=== PATIENT | female | born 1995 | race Caucasian/White ===

== ENCOUNTER → 2016-07-06 | Outpatient (CLI) | payer BC ==
[2016-04-09 23:30] VITALS: BP 126/61
--- NOTE | 2016-07-06 14:27 | RAD ---
Indication:Right upper quadrant abdominal pain Grayscale images of the abdomen were obtained. Comparison note is made of a prior examination 11/20/2014 reported as unremarkable and a right upper quadrant abdominal ultrasound examination 02/14/2015 also reported as unremarkable Liver:Normal. Gallbladder:Normal. The common bile duct diameter of approximately 3 mm is also normal. Spleen:Normal Pancreas:As visualized normal. Kidneys:Normal. Abdominal aorta and IVC:Normal Ancillary findings:None Impression:Normal abdominal ultrasound exam
== END | disposition home or self-care (01) ==
LOC: US 08:42
PROVIDERS: ATTEND Pediatrics Pediatric Cardiology
DX: R10.11 Right upper quadrant pain (principal)
CPT/HCPCS: 76700

== ENCOUNTER 2017-08-11 14:35 | Emergency (ER) | payer OTHER, BC ==
[2017-08-11] MEDS: ONDANSETRON ODT 4 MG TAB.RAPDIS. PO ×2 (16:05)
== END 2017-08-11 16:05 | disposition home or self-care (01) ==
LOC: ER 14:35
DX: S06.0X0D Concussion without loss of consciousness, subsequent encounter (principal); Z91.041 Radiographic dye allergy status; W00.0XXD Fall on same level due to ice and snow, subsequent encounter
CPT/HCPCS: 70450; 99284-25; Q0162

== ENCOUNTER 2019-07-30 17:08 | Inpatient (IN) | payer OTHER ==
[~2019-07-30] VITALS: Ht 168.9 cm; Wt 65.8 kg
[~2019-07-30 17:08] MED LIST: ONDA4TAB10 SL
[2019-07-30 19:09] LABS: BASO % 1 % (0-3); EOS # 0.2 x10^3/uL (0.0-0.7); EOS % 3 % (0-3); HEMATOCRIT 38.7 % (36.0-47.0); HEMOGLOBIN 12.8 g/dL (12.0-15.5); LYMPH # 1.3 x10^3/uL (1.0-4.8); LYMPH % 28 % (24-48); MEAN CORPUSCULAR HEMOGLOBIN 28 pg (25-35); MEAN CORPUSCULAR HGB CONC 33 g/dL (31-37); MEAN CORPUSCULAR VOLUME 84 fL (79-100); MONO # 0.5 x10^3/uL (0.0-1.1); MONO % 10 % (0-9); NEUT # 2.8 x10^3/uL (1.8-7.7); NEUT % 58 % (31-73); PLATELET COUNT 89 x10^3/uL (140-400); RED BLOOD COUNT 4.61 x10^6/uL (3.50-5.40); RED CELL DISTRIBUTION WIDTH 13.6 % (11.5-14.5); WHITE BLOOD COUNT 4.8 x10^3/uL (4.0-11.0)
[2019-07-30 19:19] LABS: CALCIUM 9.6 mg/dL (8.5-10.1); CREATININE 0.8 mg/dL (0.6-1.0); GFR 88.9; POTASSIUM 3.5 mmol/L (3.5-5.1)
[2019-07-30 19:25] LABS: ALBUMIN 3.8 g/dL (3.4-5.0); ALBUMIN/GLOBULIN RATIO 1.1 (1.0-1.7); C-REACTIVE PROTEIN 4.2 mg/L (0-3.3); PREG TEST PT QUAL NEGATIVE (NEG); TOTAL BILIRUBIN 0.2 mg/dL (0.2-1.0); TOTAL PROTEIN 7.3 g/dL (6.4-8.2)
[2019-07-30 19:36] LABS: ANISOCYTOSIS SLIGHT; PLT ESTIMATE DECREASED (ADEQUATE)
[2019-07-30 19:37] LABS: TEAR DROP CELLS OCC
[2019-07-30] MEDS ORDERED: IOHEXOL 300 MG/ML 100ML VIAL. IV ONE (21:00)
[2019-07-30] MEDS ORDERED: CONTRAST GIVEN. MC PRN ×2 (21:15→22:00)
--- NOTE | 2019-07-30 21:15 | RAD ---
STUDY: CT angiography of the head and neck INDICATION: Loss of vision. COMPARISON: Correlation is made to the CT of the head from 08/11/2017 TECHNIQUE: Axial CT imaging of the head and neck utilizing angiography protocol and performed after the intravenous administration of 75 cc Omnipaque 300 contrast. Multiplanar reformats and 3D MIP acquisitions were obtained. Encountered areas of stenosis are measured per NASCET criteria. One or more of the following individualized dose reduction techniques were utilized for this examination: 1. Automated exposure control 2. Adjustment of the mA and/or kV according to patient size 3. Use of iterative reconstruction technique. FINDINGS: CTA NECK: Arch/Proximal Great Vessels: The aortic arch and visualized ascending and descending aorta are normal. 3 vessel arch with widely patent origins. The visualized subclavian and axillary arteries are normal. Widely patent common carotid arteries. Carotid Bifurcation/Cervical ICA: Widely patent extracranial internal carotid arteries. Unremarkable external carotid artery branches. Vertebral Arteries: Patent vertebral artery origins. The vertebral arteries are codominant and without flow-limiting stenosis or dissection throughout their extracranial course. CTA HEAD: Posterior Circulation: The right intracranial vertebral artery becomes small in caliber after the origin of the posterior inferior cerebellar artery but remains patent and this configuration is favored developmental. The intracranial left vertebral artery is widely patent. The basilar artery is patent. Hypoplastic P1 posterior cerebral artery segments, more noticeable on the left, in the setting of bilateral widely patent posterior communicating arteries. No branch vessel occlusion or flow-limiting stenosis seen to involve the bilateral posterior cerebral arteries distal to P1. Anterior Circulation: Normal intracranial carotid arteries. No flow-limiting stenosis, branch vessel occlusion or aneurysm seen to involve the anterior circulation. Variant anterior cerebral artery anatomy with a patent anterior communicating artery but predominant supply of the right and left anterior cerebral artery branches distal to A1 by a dominant left A2 and beyond anterior cerebral artery vessel. Ophthalmic arteries remain opacified bilaterally. Veins: Patent dural sinuses and major intracerebral veins. MISCELLANEOUS: Unremarkable orbits no abnormality involving the visualized lungs. Unremarkable cervical spine. IMPRESSION: CT Angio Neck: 1. The visualized aorta is normal. Widely patent carotid and vertebral arteries throughout their extracranial course. CT Angio Head: 1. No flow-limiting stenosis or branch vessel occlusion involving the anterior or posterior cerebral circulations. Patent dural sinuses and major intracerebral veins. Collectively, no abnormality is seen by CT angiography to account for the patient's vision loss. Electronically signed by: AIDEE PYLE MD (07/30/2019 9:12 PM) [id number]
[2019-07-30] MEDS ORDERED: IV NORMAL SALINE 1000ML BAG 1,000 ML IV ONE (21:30)
[2019-07-30] MEDS ORDERED: IOHEXOL 350 MG/ML 100 ML VIAL. IV ONE (21:45)
--- NOTE | 2019-07-30 22:08 | RAD ---
Exam: CT of chest with contrast INDICATION: Loss of vision TECHNIQUE: Sequential axial images through the chest obtained following the administration 90 mL of Omni 350 IV contrast. Sagittal and coronal reformatted images were reconstructed from the axial data and reviewed. 3-D reformatted images were reconstructed from the axial data and reviewed. Comparisons: None FINDINGS: Visualized portions of the thyroid are unremarkable. No enlarged mediastinal lymph nodes. Heart size is normal. No pericardial effusion. Thoracic aorta has a normal course and caliber. Pulmonary artery is not enlarged. Airways are patent. No consolidation or pneumothorax. No suspicious lung nodules are identified. No pleural effusion or thickening. Visualized upper abdomen is unremarkable. No suspicious osseous lesions or acute fracture. Sternotomy wires are noted. IMPRESSION: Thoracic aorta has a normal course and caliber without evidence of dissection, aneurysm or intramural hematoma. Exposure: One or more of the following in the visualized dose reduction techniques were utilized for this examination: 1. Automated exposure control 2. Adjustment of the MA and/or KV according to patient size 3. Use of iterative of reconstructive technique Electronically signed by: Han Waters MD (07/30/2019 10:05 PM) [id number]
[2019-07-31 02:00] VITALS: BP 114/73
[2019-07-31] MEDS: MORPHINE SULFATE 2 MG/ML VIAL. IV PRN ×2 (03:07→08:00)
[2019-07-31] MEDS ORDERED: ESTR1.25 PO (04:05)
--- NOTE | 2019-07-31 04:50 | EKG ---
[facility] [address] [place] [address] Test Date: 2019-07-30 Test Time: 18:29:05 Pat Name: MARLON CARDOSO Department: Room: Gender: F Boilermaker: : 1995 Requested By: PAUL ODEN Order Number: [id number] Reading MD: Measurements Intervals Fletcher Rate: 69 P: 12 LA: 170 QRS: -41 QRSD: 98 T: 13 QT: 406 QTc: 441 Interpretive Statements SINUS RHYTHM ABNORMAL LEFT AXIS DEVIATION R-S TRANSITION ZONE IN V LEADS DISPLACED TO THE RIGHT LEFT ANTERIOR FASCICULAR BLOCK INCOMPLETE RIGHT BUNDLE BRANCH BLOCK RVH WITH REPOLARIZATION ABNORMALITY ABNORMAL ECG No previous ECG available for comparison
--- NOTE | 2019-07-31 06:01 | PHYS DOC ---
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 Symptom onset was 2 hours prior to ED arrival. Patient denies posterior neck pain, tinnitus, dizziness. No palpitations, shortness of breath. No history of migraines. Denies flashes, floaters or loss or eye pain. Wears corrective lenses. No other acute symptoms or complaints. History of mitral valve repair and strabismus. [] Review of Systems Review of Systems Constitutional: Denies fever or chills [] Eyes: Denies change in visual acuity, redness, or eye pain [] HENT: Denies nasal congestion or sore throat [] Respiratory: Denies cough or shortness of breath [] Cardiovascular: No additional information not addressed in HPI [] GI: Denies abdominal pain, nausea, vomiting, bloody stools or diarrhea [] : Denies dysuria or hematuria [] Musculoskeletal: Denies back pain or joint pain [] Integument: Denies rash or skin lesions [] Neurologic: Denies headache, focal weakness or sensory changes [] Endocrine: Denies polyuria or polydipsia [] All other systems were reviewed and found to be within normal limits, except as documented in this note. Current Medications Current Medications Current Medications Medications (Trade) Dose Ordered Sig/Dank Start Time Stop Time Status Last Admin Dose Admin Info (CONTRAST GIVEN -- Rx MONITORING) 1 each PRN DAILY PRN 07/30/19 22:00 08/01/19 21:59 Iohexol (Omnipaque 300 Mg/ml) 75 ml 1X ONCE 07/30/19 21:00 07/30/19 21:02 DC 07/30/19 21:26 75 ML Iohexol (Omnipaque 350 Mg/ml) 90 ml 1X ONCE 07/30/19 21:45 07/30/19 21:47 DC 07/30/19 22:00 90 ML Sodium Chloride 1,000 ml @ 1,000 mls/hr 1X ONCE 07/30/19 21:30 07/30/19 22:29 DC 07/30/19 22:19 1,000 MLS/HR Physical Exam Physical Exam Constitutional: Well developed, well nourished, no acute distress, non-toxic appearance. [] HENT: Normocephalic, atraumatic, bilateral external ears normal, oropharynx moist, no oral exudates, nose normal. [] Eyes: PERRLA, EOMI, conjunctiva normal. Visual acuity, 20/20, 20/20, no acute abnormalities appreciated on limited funduscopic exam. [] Neck: Normal range of motion, no tenderness, supple, no stridor. [] Cardiovascular:Heart rate regular rhythm, no murmur [] Lungs & Thorax: Bilateral breath sounds clear to auscultation [] Abdomen: Bowel sounds normal, soft, no tenderness, no masses, no pulsatile masses. [] Skin: Warm, dry, no erythema, no rash. [] Back: No tenderness, no CVA tenderness. [] Extremities: No tenderness, no cyanosis, no clubbing, ROM intact, no edema. [] Neurologic: Alert and oriented X 3, CN 3-12 grossly intact, loss of right eye lateral peripheral vision, normal motor function, normal sensory function, no focal deficits noted. [] Psychologic: Affect normal, judgement normal, mood normal. [] Current Patient Data Vital Signs Vital Signs Date Time Temp Pulse Resp B/P (MAP) Pulse Ox O2 Delivery O2 Flow Rate FiO2 07/30/19 23:17 54 112/71 (85) 99 Room Air 07/30/19 18:07 98.1 17 98.1 Lab Values Laboratory Tests Test 07/30/19 18:31 White Blood Count 4.8 x10^3/uL (4.0-11.0) Red Blood Count 4.61 x10^6/uL (3.50-5.40) Hemoglobin 12.8 g/dL (12.0-15.5) Hematocrit 38.7 % (36.0-47.0) Mean Corpuscular Volume 84 fL (79-100) Mean Corpuscular Hemoglobin 28 pg (25-35) Mean Corpuscular Hemoglobin Concent 33 g/dL (31-37) Red Cell Distribution Width 13.6 % (11.5-14.5) Platelet Count 89 x10^3/uL (140-400) L Neutrophils (%) (Auto) 58 % (31-73) Lymphocytes (%) (Auto) 28 % (24-48) Monocytes (%) (Auto) 10 % (0-9) H Eosinophils (%) (Auto) 3 % (0-3) Basophils (%) (Auto) 1 % (0-3) Neutrophils # (Auto) 2.8 x10^3/uL (1.8-7.7) Lymphocytes # (Auto) 1.3 x10^3/uL (1.0-4.8) Monocytes # (Auto) 0.5 x10^3/uL (0.0-1.1) Eosinophils # (Auto) 0.2 x10^3/uL (0.0-0.7) Basophils # (Auto) 0.0 x10^3/uL (0.0-0.2) Platelet Estimate Decreased (ADEQUATE) Large Platelets Occ Anisocytosis Slight Tear Drop Cells Occ D-Dimer (Lizeth) 9.18 ug/mlFEU (0.00-0.50) H Sodium Level 140 mmol/L (136-145) Potassium Level 3.5 mmol/L (3.5-5.1) Chloride Level 103 mmol/L (98-107) Carbon Dioxide Level 27 mmol/L (21-32) Anion Gap 10 (6-14) Blood Urea Nitrogen 19 mg/dL (7-20) Creatinine 0.8 mg/dL (0.6-1.0) Estimated GFR (Cockcroft-Gault) 88.9 BUN/Creatinine Ratio 24 (6-20) H Glucose Level 95 mg/dL (70-99) Calcium Level 9.6 mg/dL (8.5-10.1) Total Bilirubin 0.2 mg/dL (0.2-1.0) Aspartate Amino Transferase (AST) 21 U/L (15-37) Alanine Aminotransferase (ALT) 29 U/L (14-59) Alkaline Phosphatase 97 U/L (46-116) C-Reactive Protein, Quantitative 4.2 mg/L (0-3.3) H Total Protein 7.3 g/dL (6.4-8.2) Albumin 3.8 g/dL (3.4-5.0) Albumin/Globulin Ratio 1.1 (1.0-1.7) Serum Test, Qualitative Negative (NEG) Laboratory Tests 07/30/19 18:31 Laboratory Tests 07/30/19 18:31 EKG EKG [EKG: reviewed] Radiology/Procedures Radiology/Procedures [CT Angio head/neck/chest: No acute disease per radiology report. ] Course & Med Decision Making Course & Med Decision Making Pertinent Labs and Imaging studies reviewed. (See chart for details) [Patient with loss of right eye peripheral vision atypical chest pain. Elevated d-dimer, etiology unclear. CT angio head neck chest negative. Case reviewed with Dr. Umaña. Will admit to the hospitalist service with arrangements for the patient to be evaluated in Dr. Mckeon's office tomorrow during the day.] Dragon Disclaimer Dragon Disclaimer This electronic medical record was generated, in whole or in part, using a voice recognition dictation system. Departure Departure Impression: Primary Impression: Vision loss of right eye Additional Impressions: Chest pain Elevated d-dimer Disposition: ADMITTED INPATIENT Condition: STABLE Referrals: NO PCP (PCP) Problem Qualifiers PAUL ODEN DO Jul 31, 2019 06:01
[2019-07-31] MEDS ORDERED: ONDANSETRON PF 4 MG/2 ML VIAL. IV PRN (06:15)
[2019-07-31 07:00] VITALS: BP 105/62
--- NOTE | 2019-07-31 10:22 | PDOC2 ---
NEUROLOGY CONSULT Date of Admission Date of Admission DATE: 07/31/19 TIME: 10:14 Reason for Consult Reason for Consult: Vision loss Referring Physician Referring Physician: Dr. Beto Zuleta Source Source: Caregiver, Chart review, Patient History of Present Illness History of Present Illness The patient is a 23-year-old right-handed female who noticed yesterday the onset of blurred vision just in the lateral field of the right eye. She has had no loss of vision a left eye. She does have a history of migraines in the past but not currently. She denies any head pain including with eye movement. She is having chest pain, which she has had in the past and has had negative workup for. She has had poly arthralgia for the last several months and has difficulty getting around. She is scheduled to see her eye doctor today. There is no histor y of stroke, seizure, or head injury.She denies any psychosocial stress. 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) Past Surgical History Past Surgical History: Other (Mitral valve repair as an , strabismus surgery) Family History Family History: No pertinent hx Social History Social History Single, occasional alcohol, tobacco or street drugs, works in a store and a bar Current Medications Current Medications Current Medications Iohexol (Omnipaque 300 Mg/ml) 75 ml 1X ONCE IV Last administered on 07/30/19at 21:26; Start 07/30/19 at 21:00; Stop 07/30/19 at 21:02; Status DC Info (CONTRAST GIVEN -- Rx MONITORING) 1 each PRN DAILY PRN MC SEE COMMENTS; Start 07/30/19 at 21:15; Stop 08/01/19 at 21:14 Sodium Chloride 1,000 ml @ 1,000 mls/hr 1X ONCE IV Last administered on 07/30/19at 22:19; Start 07/30/19 at 21:30; Stop 07/30/19 at 22:29; Status DC Iohexol (Omnipaque 350 Mg/ml) 90 ml 1X ONCE IV Last administered on 07/30/19at 22:00; Start 07/30/19 at 21:45; Stop 07/30/19 at 21:47; Status DC Info (CONTRAST GIVEN -- Rx MONITORING) 1 each PRN DAILY PRN MC SEE COMMENTS; Start 07/30/19 at 22:00; Stop 08/01/19 at 21:59 Morphine Sulfate (Morphine Sulfate) 2 mg PRN Q3HRS PRN IV PAIN Last adminis tered on 07/31/19at 08:00; Start 07/31/19 at 03:00 Ondansetron HCl (Zofran) 4 mg PRN Q8HRS PRN IV NAUSEA/VOMITING; Start 07/31/19 at 06:15; Stop 08/01/19 at 06:14 Active Scripts Active Zofran Odt (Ondansetron) 4 Mg Tab.rapdis 1 Tab SL Q8HRS Reported Premarin (Estrogens, Conjugated) 1.25 Mg Tablet 1.25 Mg PO DAILY Allergies Allergies: Coded Allergies: povidone-iodine (Verified Allergy, Intermediate, 07/31/19) ROS Review of System Negative for fever, chills, weight loss, shortness of breath, chest pain, indigestion, hematochezia, melena, and dysuria. Full 14-point review of systems is negative. Physical Exam Physical Examination General: Well-developed, well-nourished white female in no acute distress HEENT: Normocephalic andatraumatic. Temporal arteriespulsatile and nontender.Fundoscopic exam unremarkable Neck: Supple without bruit, no meningismus Musculoskeletal: Stability:see neurologic. Gait exam:see neurologic. Tone:see neurologic.Strength:see neurologic. Neurological: Mental Status:intact, orientation, memory, attention span/concentration, language, fund of knowledge normal. Cranial Nerves:Pupils equal and reactive to light, extraocular movements areintact, visual vincent are full to confrontation. Facial sensation is normal. There is no facial asymmetry. Vestibulo-ocular reflex is intact. Palate elevates and tongue protrudes in m idline. All other cranial related problems are negative except as mentioned before.Reflexes:2+ and symmetric with flexor plantar responses. Motor:5/5 strength with normal tone and bulk. Coordination:Finger-nose finger and ziko-us-[id number] testing are normal. Rapid alternating movements and fine finger movements are intact. Gait: antalgic, but able to tandem. Sensory:Normal pinprick, vibration, light touch, proprioception. Vitals VITALS Vital Signs Date Time Temp Pulse Resp B/P (MAP) Pulse Ox O2 Delivery O2 Flow Rate FiO2 07/31/19 08:00 Room Air 07/31/19 07:00 97.9 66 18 105/62 (76) 98 97.9 Labs Labs Laboratory Tests Test 07/30/19 18:31 07/31/19 08:40 White Blood Count 4.8 x10^3/uL (4.0-11.0) Red Blood Count 4.61 x10^6/uL (3.50-5.40) Hemoglobin 12.8 g/dL (12.0-15.5) Hematocrit 38.7 % (36.0-47.0) Mean Corpuscular Volume 84 fL (79-100) Mean Corpuscular Hemoglobin 28 pg (25-35) Mean Corpuscular Hemoglobin Concent 33 g/dL (31-37) Red Cell Distribution Width 13.6 % (11.5-14.5) Platelet Count 89 x10^3/uL (140-400) Neutrophils (%) (Auto) 58 % (31-73) Lymphocytes (%) (Auto) 28 % (24-48) Monocytes (%) (Auto) 10 % (0-9) Eosinophils (%) (Auto) 3 % (0-3) Basophils (%) (Auto) 1 % (0-3) Neutrophils # (Auto) 2.8 x10^3/uL (1.8-7.7) Lymphocytes # (Auto) 1.3 x10^3/uL (1.0-4.8) Monocytes # (Auto) 0.5 x10^3/uL (0.0-1.1) Eosinophils # (Auto) 0.2 x10^3/uL (0.0-0.7) Basophils # (Auto) 0.0 x10^3/uL (0.0-0.2) Platelet Estimate Decreased (ADEQUATE) Large Platelets Occ Anisocytosis Slight Tear Drop Cells Occ D-Dimer (Lizeth) 9.18 ug/mlFEU (0.00-0.50) Sodium Level 140 mmol/L (136-145) Potassium Level 3.5 mmol/L (3.5-5.1) Chloride Level 103 mmol/L (98-107) Carbon Dioxide Level 27 mmol/L (21-32) Anion Gap 10 (6-14) Blood Urea Nitrogen 19 mg/dL (7-20) Creatinine 0.8 mg/dL (0.6-1.0) Estimated GFR (Cockcroft-Gault) 88.9 BUN/Creatinine Ratio 24 (6-20) Glucose Level 95 mg/dL (70-99) Calcium Level 9.6 mg/dL (8.5-10.1) Total Bilirubin 0.2 mg/dL (0.2-1.0) Aspartate Amino Transf (AST/SGOT) 21 U/L (15-37) Alanine Aminotransferase (ALT/SGPT) 29 U/L (14-59) Alkaline Phosphatase 97 U/L (46-116) C-Reactive Protein, Quantitative 4.2 mg/L (0-3.3) Total Protein 7.3 g/dL (6.4-8.2) Albumin 3.8 g/dL (3.4-5.0) Albumin/Globulin Ratio 1.1 (1.0-1.7) Serum Test, Qualitative Negative (NEG) Troponin I Quantitative < 0.017 ng/mL (0.000-0.055) Vitamin B12 Level 513 pg/mL (247-911) Thyroid Stimulating Hormone (TSH) 3.785 uIU/mL (0.358-3.74) Laboratory Tests Test 07/30/19 18:31 07/31/19 08:40 White Blood Count 4.8 x10^3/uL (4.0-11.0) Red Blood Count 4.61 x10^6/uL (3.50-5.40) Hemoglobin 12.8 g/dL (12.0-15.5) Hematocrit 38.7 % (36.0-47.0) Mean Corpuscular Volume 84 fL (79-100) Mean Corpuscular Hemoglobin 28 pg (25-35) Mean Corpuscular Hemoglobin Concent 33 g/dL (31-37) Red Cell Distribution Width 13.6 % (11.5-14.5) Platelet Count 89 x10^3/uL (140-400) Neutrophils (%) (Auto) 58 % (31-73) Lymphocytes (%) (Auto) 28 % (24-48) Monocytes (%) (Auto) 10 % (0-9) Eosinophils (%) (Auto) 3 % (0-3) Basophils (%) (Auto) 1 % (0-3) Neutrophils # (Auto) 2.8 x10^3/uL (1.8-7.7) Lymphocytes # (Auto) 1.3 x10^3/uL (1.0-4.8) Monocytes # (Auto) 0.5 x10^3/uL (0.0-1.1) Eosinophils # (Auto) 0.2 x10^3/uL (0.0-0.7) Basophils # (Auto) 0.0 x10^3/uL (0.0-0.2) Platelet Estimate Decreased (ADEQUATE) Large Platelets Occ Anisocytosis Slight Tear Drop Cells Occ D-Dimer (Lizeth) 9.18 ug/mlFEU (0.00-0.50) Sodium Level 140 mmol/L (136-145) Potassium Level 3.5 mmol/L (3.5-5.1) Chloride Level 103 mmol/L (98-107) Carbon Dioxide Level 27 mmol/L (21-32) Anion Gap 10 (6-14) Blood Urea Nitrogen 19 mg/dL (7-20) Creatinine 0.8 mg/dL (0.6-1.0) Estimated GFR (Cockcroft-Gault) 88.9 BUN/Creatinine Ratio 24 (6-20) Glucose Level 95 mg/dL (70-99) Calcium Level 9.6 mg/dL (8.5-10.1) Total Bilirubin 0.2 mg/dL (0.2-1.0) Aspartate Amino Transf (AST/SGOT) 21 U/L (15-37) Alanine Aminotransferase (ALT/SGPT) 29 U/L (14-59) Alkaline Phosphatase 97 U/L (46-116) C-Reactive Protein, Quantitative 4.2 mg/L (0-3.3) Total Protein 7.3 g/dL (6.4-8.2) Albumin 3.8 g/dL (3.4-5.0) Albumin/Globulin Ratio 1.1 (1.0-1.7) Serum Test, Qualitative Negative (NEG) Troponin I Quantitative < 0.017 ng/mL (0.000-0.055) Vitamin B12 Level 513 pg/mL (247-911) Thyroid Stimulating Hormone (TSH) 3.785 uIU/mL (0.358-3.74) Images Images CT angiography of the head and neck INDICATION: Loss of vision. COMPARISON: Correlation is made to the CT of the head from 08/11/2017 TECHNIQUE: Axial CT imaging of the head and neck utilizing angiography protocol and performed after the intravenous administration of 75 cc Omnipaque 300 contrast. Multiplanar reformats and 3D MIP acquisitions were obtained. Encountered areas of stenosis are measured per NASCET criteria. One or more of the following individualized dose reduction techniques were utilized for this examination: 1. Automated exposure control 2. Adjustment of the mA and/or kV according to patient size 3. Use of iterative reconstruction technique. FINDINGS: CTA NECK: Arch/Proximal Great Vessels: The aortic arch and visualized ascending and descending aorta are normal. 3 vessel arch with widely patent origins. The visualized subclavian and axillary arteries are normal. Widely patent common carotid arteries. Carotid Bifurcation/Cervical ICA: Widely patent extracranial internal carotid arteries. Unremarkable external carotid artery branches. Vertebral Arteries: Patent vertebral artery origins. The vertebral arteries are codominant and without flow-limiting stenosis or dissection throughout their extracranial course. CTA HEAD: Posterior Circulation: The right intracranial vertebral artery becomes small in caliber after the origin of the posterior inferior cerebellar artery but remains patent and this configuration is favored developmental. The intracranial left vertebral artery is widely patent. The basilar artery is patent. Hypoplastic P1 posterior cerebral artery segments, more noticeable on the left, in the setting of bilateral widely patent posterior communicating arteries. No branch vessel occlusion or flow-limiting stenosis seen to involve the bilateral posterior cerebral arteries distal to P1. Anterior Circulation: Normal intracranial carotid arteries. No flow-limiting stenosis, branch vessel occlusion or aneurysm seen to involve the anterior circulation. Variant anterior cerebral artery anatomy with a patent anterior communicating artery but predominant supply of the right and left anterior cerebral artery branches distal to A1 by a dominant left A2 and beyond anterior cerebral artery vessel. Ophthalmic arteries remain opacified bilaterally. Veins: Patent dural sinuses and major intracerebral veins. MISCELLANEOUS: Unremarkable orbits no abnormality involving the visualized lungs. Unremarkable cervical spine. IMPRESSION: CT Angio Neck: 1. The visualized aorta is normal. Widely patent carotid and vertebral arteries throughout their extracranial course. CT Angio Head: 1. No flow-limiting stenosis or branch vessel occlusion involving the anterior or posterior cerebral circulations. Patent dural sinuses and major intracerebral veins. Collectively, no abnormality is seen by CT angiography to account for the patient's vision loss. Assessment/Plan Assessment/Plan Impression: Unilateral right-eye peripheral field defect, this would be unusual to be due to a neurological issue such as multiple sclerosis, optic neuritis, or cereb rovascular disease. I also find no evidence of intraocular pathology. Migraine phenomenon would be an attractive explanation for this issue. Polyarthralgia, elevated C-reactive protein History of psychiatric disease, not apparent currently. 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 Reassurance offered that migraine is the most likely cause of this issue. Follow up with me and 4-6 weeks. Aim for discharge later today Also discussed with patient's mother. Thank you for letting me help of the patient's care. PAMELA PARKER MD Jul 31, 2019 10:22
[2019-07-31 11:00] VITALS: BP 99/54
--- NOTE | 2019-07-31 12:18 | SSS ---
ADMIT DATE: 07/31/2019 CHIEF COMPLAINT: Vision loss. HISTORY OF PRESENT ILLNESS: The patient is a pleasant, relatively healthy 23-year-old female who presented with vision loss. This came on a few hours ago, rated at 6/10. She has associated chest pain and anxiety. Moving makes it worse and sitting still makes it better, described as irritating. She tried taking some home meds, but that did not help. I discussed the case with ER physician. We are going to admit the patient and consult Ophthalmology. I did call them today. They do not come to the hospital right now, so we are going to probably discharge the patient and let her go over to see them next door (it should be noted that her vision changes have improved dramatically. This morning, she is back to her baseline other than some slight fuzziness on the right eye). PAST MEDICAL HISTORY: Anxiety. ALLERGIES: None. FAMILY HISTORY: Hypertension. SOCIAL HISTORY: She does not drink, smoke or take drugs. She has a job. MEDICATIONS: Reviewed, please refer to the MRAD. REVIEW OF SYSTEMS: GENERAL: No history of weight change, weakness or fevers. SKIN: No bruising, hair changes or rashes. EYES: No blurred, double or loss of vision. NOSE AND THROAT: No history of nosebleeds, hoarseness or sore throat. HEART: No history of palpitations, chest pain or shortness of breath on exertion. LUNGS: Denies cough, hemoptysis, wheezing or shortness of breath. GASTROINTESTINAL: Denies changes in appetite, nausea, vomiting, diarrhea or constipation. GENITOURINARY: No history of frequency, urgency, hesitancy or nocturia. NEUROLOGIC: She complains of visual changes. PSYCHIATRIC: No history of panic, anxiety or depression. ENDOCRINE: No history of heat or cold intolerance, polyuria or polydipsia. EXTREMITIES: Denies muscle weakness, joint pain, pain on walking or stiffness. PHYSICAL EXAMINATION: VITALS: Within normal limits and are stable. GENERAL: No apparent distress. Alert and oriented. HEENT: Normal cephalic atraumatic, external auditory canals are patent. EYES: Extraocular muscles are intact, pupils are equally round and reactive to light and accommodation. MUSKULOSKELETAL: Well developed, well nourished, good range of motion. ENDOCRINE: No thyromegaly was palpated. LYMPHATICS: No cervical chain or axillary nodes were noted. HEMATOPOIETIC: No bruising. NECK: Supple, no JVD, no thyromegaly was noted. LUNGS: Clear to auscultation in all lung vincent without rhonchi or wheezing. HEART: RRR, S1, S2 present. Peripheral pulses intact, no obvious murmurs were noted. ABDOMEN: Soft, nontender. Positive bowel sounds no organomegaly, normal bowel sounds. EXTREMITIES: Without any cyanosis, clubbing, or edema. Pedal pulses intact, Homans sign is negative. NEUROLOGIC: Normal speech, normal tone. A & O x3, moves all extremities, no obvious focal deficits. PSYCHIATRIC: Normal affect, normal mood. Stable. SKIN: No ulcerations or rashes, good skin turgor, no jaundice. VASCULAR: Good capillary refill, neurovascular bundle appears to be intact. ASSESSMENT AND PLAN: Resolving visual changes. The patient is going to be discharged. We did consult Neurology. They ordered an MRI, so if the MRI is negative, we plan to discharge and she is going to walk next door with her parents to the Ophthalmology office and get a full exam there. DISPOSITION: Home. ACTIVITY: As tolerated. DIET: Low sodium. MEDICATIONS: Please see MRAD. TOTAL TIME: 32 minutes. JENNIFER WINTERS DO DR: DEBBY/krissy JOB#: [id number] / [id number]
[2019-07-31] MEDS ORDERED: GADOTERATE 7.5 MMOL/15ML VIAL. IVP ONE (13:15)
--- NOTE | 2019-07-31 14:12 | NUR ---
SS following for discharge planning. SS reviewed pt chart. Pt is from home and is currently on room air. Discharge order on the chart for home with self care.
--- NOTE | 2019-07-31 15:01 | NUR ---
Discharge Note: [facility] Discharge instructions and discharge home medications reviewed with Patient and a copy given. All questions have been answered and understanding verbalized. The following instructions and handouts were given: CP, blurred vision, d-dimer, follow up with Dr. Muhammad and Dr. Jacobson Discontinued lines and drains: Peripheral IV intact. Patient discharged to Home or Self Care with Family Member via Wheelchair
--- NOTE | 2019-07-31 15:24 | RAD ---
BRAIN WO/W CONTRAST Date: 07/31/2019 8:44 AM Indication: Right eye blurred vision Comparison: CT 07/30/2019. Technique: Multiplanar multisequence MRI of the brain was performed with and without intravenous contrast using the standard protocol. 13 cc Dotarem contrast was administered intravenously during the exam. Findings: No acute infarct. No acute or chronic hemorrhage. The ventricles are normal in size and configuration without hydrocephalus. Small right parietal periventricular neuroglial cyst or perivascular space. No abnormal enhancement. There are a couple of T2 hyperintense foci in the right cerebellum. The scalp and calvarium are normal. The pituitary and sella are normal. No Chiari malformation. The visualized upper cervical spine is normal. The visualized orbits and globes are normal. The visualized paranasal sinuses are clear. The mastoid air cells are clear. Normal flow voids within the vertebral, basilar, and internal carotid arteries indicating patency. IMPRESSION: 1. No acute infarct or hemorrhage. No mass or abnormal enhancement. 2. There are a couple of T2 hyperintense foci in the right cerebellum, nonspecific but possibly perivascular spaces. Chronic lacunar infarcts would be uncommon in a patient of this age. Electronically signed by: Stevie Mcpherson MD (07/31/2019 2:54 PM) [id number]
[2019-07-31 20:08] LABS: RHEUMATOID FACTOR 322.6 IU/mL (0.0-13.9)
[2019-08-02 19:09] LABS: ANA INTERP Negative (.)
== END 2019-07-31 15:03 | disposition home or self-care (01) | DRG 125 ==
LOC: ER 17:08 → 2 SOUTH 23:30
PROVIDERS: ADMIT Internal Medicine; ATTEND Internal Medicine
DX: H54.61 Unqualified visual loss, right eye, normal vision left eye (principal); F41.9 Anxiety disorder, unspecified; F32.9 Major depressive disorder, single episode, unspecified; Q51.0 Agenesis and aplasia of uterus; G35 Multiple sclerosis; G43.909 Migraine, unspecified, not intractable, without status migrainosus; M25.50 Pain in unspecified joint; Z88.8 Allergy status to other drugs, medicaments and biological substances; Z82.49 Family history of ischemic heart disease and other diseases of the circulatory system
CPT/HCPCS: 36415; 70496; 70498; 70553; 71275; 80053; 82607; 84443; 84484; 84703; 85025; 85379; 86038; 86140; 86431; 93005; 96360; A9575; J2270; J7030; Q9967; 99285-25; G0378